=== PATIENT | male | born 1975 | race Caucasian/White ===

== ENCOUNTER 2016-11-14 18:58 | Emergency (ER) | payer MEDICAID ==
[2016-11-14 19:22] VITALS: BP 134/83
--- NOTE | 2016-11-14 19:45 | EDM.PDOC ---
ED HPI GENERAL MEDICAL PROBLEM - General Chief Complaint: Flank Pain Stated Complaint: stones Time Seen by Provider: 11/14/16 19:25 Source of Information: Reports: Patient, Family History Limitations: Reports: No Limitations - History of Present Illness INITIAL COMMENTS - FREE TEXT/NARRATIVE: 40-year-old male with chronic pain issues has developed right intermittent flank pain for the past 4 days. He has an increase in pain at the beginning of urination, it seems to improve shelter through the process of urinating. No fevers or chills, no recent trauma. He has not had this pain in the past. No GI changes. He's had somewhat decreased appetite. No nausea or vomiting. Onset: Other (4 days ago) Location: Reports: Back (Right flank) Quality: Reports: Ache Severity: Moderate Improves with: Reports: Other (Seems to improve at the end of urination. Also his regular pain medications help.) right flank Pain Score (Numeric/FACES): 6 - Related Data Allergies Allergy/AdvReac Type Severity Reaction Status Date / Time No Known Allergies Allergy Verified 11/14/16 19:14 Home Meds: Home Meds Cyclobenzaprine [Flexeril] 10 mg PO TID 11/14/16 [History] Gabapentin [Neurontin] 1,200 mg PO TID 11/14/16 [History] Gemfibrozil 600 mg PO BID 11/14/16 [History] Lisinopril/Hydrochlorothiazide [Lisinopril-Hctz 10-12.5 mg Tab] 1 tab PO DAILY 11/14/16 [History] Naproxen 1 tab PO TID 11/14/16 [History] oxyCODONE HCl [Oxycodone HCl] 20 mg PO QID 11/14/16 [History] Past Medical History Cardiovascular History: Reports: High Cholesterol, Hypertension Gastrointestinal History: Reports: GERD Musculoskeletal History: Reports: Back Pain, Chronic, Fracture, Fibromyalgia, Other (See Below) Other Musculoskeletal History: degenerative disc disease Psychiatric History: Reports: ADHD Dermatologic History: Reports: Eczema Social & Family History - Tobacco Use Smoking Status *Q: Current Every Day Smoker Years of Tobacco use: 20 Packs/Tins Daily: 1 - Caffeine Use Caffeine Use: Reports: Coffee, Energy Drinks, Soda - Recreational Drug Use Recreational Drug Use: No ED ROS GENERAL - Review of Systems Review Of Systems: See Below Constitutional: Denies: Fever, Chills HEENT: Reports: No Symptoms Respiratory: Denies: Shortness of Breath Cardiovascular: Denies: Chest Pain Endocrine: Denies: Fatigue GI/Abdominal: Reports: Decreased Appetite. Denies: Abdominal Pain, Nausea, Vomiting : Reports: Other (See history of present illness) Musculoskeletal: Reports: Back Pain (Patient has chronic back pain and "fibromyalgia") Skin: Reports: No Symptoms Neurological: Reports: No Symptoms ED EXAM, GENERAL - Physical Exam Exam: See Below Exam Limited By: No Limitations General Appearance: Alert, No Apparent Distress Eye Exam: Bilateral Eye: EOMI Respiratory/Chest: No Respiratory Distress, Lungs Clear Cardiovascular: Regular Rate, Rhythm, Tachycardia GI/Abdominal: Soft, Tender (No significant tenderness to palpation) Back Exam: CVA Tenderness (R) (He does react with tenderness to percussion of the right flank.) Neurological: Alert, Oriented Psychiatric: Normal Affect, Normal Mood Skin Exam: Warm, Dry Course - Vital Signs Last Recorded V/S: Last Vital Signs Temp 98.4 F 11/14/16 19:19 Pulse 121 H 11/14/16 19:19 Resp 18 11/14/16 19:19 BP 134/83 11/14/16 19:19 Pulse Ox 95 11/14/16 19:19 - Orders/Labs/Meds Orders: Active Orders 24 hr Category Date Time Status Abdomen Pelvis wo Cont [CT] Stat Exams 11/14/16 19:37 Taken Labs: Laboratory Tests 11/14/16 Range/Units 19:26 Urine Color Yellow Urine Appearance Clear Urine pH 6.0 (4.5-8.0) Ur Specific [place] 1.010 (1.008-1.030) Urine Protein Negative (NEGATIVE) mg/dL Urine Glucose (UA) Normal (NEGATIVE) mg/dL Urine Ketones Negative (NEGATIVE) mg/dL Urine Occult Blood Negative (NEGATIVE) Urine Nitrite Negative (NEGAITVE) Urine Bilirubin Negative (NEGATIVE) Urine Urobilinogen Normal (NORMAL) mg/dL Ur Leukocyte Esterase Negative (NEGATIVE) Urine RBC 0-5 (0-5) Urine WBC Not seen (0-5) Ur Epithelial Cells Rare Amorphous Sediment Not seen Urine Bacteria Rare Urine Mucus Not seen - Re-Assessments/Exams Free Text/Narrative Re-Assessment/Exam: 11/14/16 19:46 A UA was obtained which was normal. A CT of his abdomen and pelvis without contrast was then obtained. 11/14/16 20:09 CT showed no obstructive uropathy or other reason for acute pain. Patient was encouraged to continue his regular medications. He can recheck next week with a primary provider if symptoms persist. Departure - Departure Time of Disposition: 20:21 Disposition: Home, Self-Care 01 Condition: Good Clinical Impression: Muscle pain, fibromyalgia - Discharge Information Instructions: Flank Pain, [id number] Referrals: PCP,None [Primary Care Provider] - Forms: ED Department Discharge Care Plan Goals: Continue with your current medications and increase activity as tolerated. Consider rechecking with a primary care provider at the clinic in 3-4 days if not improving satisfactorily. Return anytime sooner if worsening or concerns. - My Orders Last 24 Hours: My Active Orders 11/14/16 19:37 Abdomen Pelvis wo Cont [CT] Stat - Assessment/Plan Last 24 Hours: My Active Orders 11/14/16 19:37 Abdomen Pelvis wo Cont [CT] Stat
== END 2016-11-14 20:21 | disposition home or self-care (01) ==
LOC: JP.ED 18:58
DX: M79.7 Fibromyalgia (principal); E78.00 Pure hypercholesterolemia, unspecified; K21.9 Gastro-esophageal reflux disease without esophagitis; I10 Essential (primary) hypertension; F17.210 Nicotine dependence, cigarettes, uncomplicated
CPT/HCPCS: 74176; 81001; 99283; 99284-25

== ENCOUNTER 2017-09-03 16:38 | Emergency (ER) | payer BC, MEDICAID ==
[2017-09-03 17:06] VITALS: BP 135/94
[2017-09-03] MEDS ORDERED: Cyclobenzaprine 10 MG Tab PO ONE (17:42)
[2017-09-03] MEDS ORDERED: Ketorolac 60 MG/2 ML SDV IM ONE (17:42)
--- NOTE | 2017-09-03 17:44 | EDM.PDOC ---
ED HPI GENERAL MEDICAL PROBLEM - General Chief Complaint: Back Pain or Injury Stated Complaint: PAIN IN NECK AND DOWN BACK NOT AN ACCIDENT Time Seen by Provider: 09/03/17 17:39 Source of Information: Reports: Patient, Family, RN Notes Reviewed History Limitations: Reports: No Limitations - History of Present Illness INITIAL COMMENTS - FREE TEXT/NARRATIVE: 41-year-old gentleman presents emergency department day complaint of shoulder and back pain on the right side he states is been ongoing for the last couple days he does have a past medical history of fibromyalgia is not taking any particular medication for this pain he states sitting for prolonged period does exacerbate the pain it feels better with movement. He denies any nausea vomiting shortness of breath chest pain no loss of bowel or bladder Neck Pain Score (Numeric/FACES): 8 - Related Data Allergies Allergy/AdvReac Type Severity Reaction Status Date / Time No Known Allergies Allergy Verified 11/14/16 19:14 Home Meds: Home Meds Gabapentin [Neurontin] 1,200 mg PO TID 11/14/16 [History] Gemfibrozil 600 mg PO BID 11/14/16 [History] Lisinopril/Hydrochlorothiazide [Lisinopril-Hctz 10-12.5 mg Tab] 1 tab PO DAILY 11/14/16 [History] Naproxen 1 tab PO TID 11/14/16 [History] Past Medical History Cardiovascular History: Reports: High Cholesterol, Hypertension Gastrointestinal History: Reports: GERD Musculoskeletal History: Reports: Back Pain, Chronic, Fracture, Fibromyalgia, Other (See Below) Other Musculoskeletal History: degenerative disc disease Psychiatric History: Reports: ADHD Dermatologic History: Reports: Eczema Social & Family History - Tobacco Use Smoking Status *Q: Current Every Day Smoker Years of Tobacco use: 25 Packs/Tins Daily: 1 - Caffeine Use Caffeine Use: Reports: Coffee, Soda - Recreational Drug Use Recreational Drug Use: No ED ROS GENERAL - Review of Systems Review Of Systems: See Below Constitutional: Reports: No Symptoms HEENT: Reports: No Symptoms Respiratory: Reports: No Symptoms Cardiovascular: Reports: No Symptoms GI/Abdominal: Reports: No Symptoms : Reports: No Symptoms Musculoskeletal: Reports: Shoulder Pain, Back Pain Skin: Reports: No Symptoms Neurological: Reports: No Symptoms ED EXAM, UPPER BACK/NECK PAIN - Physical Exam Exam: See Below Text/Narrative:: Examination of the upper extremity he has full range of motion I don't appreciate any erythema or edema located around the shoulder he is point tender to the superior aspect of the rhomboids radial pulse is +2 on the right side, neck I don't appreciate any point tenderness full range of motion of the neck Exam Limited By: No Limitations General Appearance: Alert, WD/WN, No Apparent Distress Cardiovascular/Respiratory: Regular Rate, Rhythm, No M/R/G, Normal Breath Sounds , No Respiratory Distress Course - Vital Signs Last Recorded V/S: Last Vital Signs Temp 96.1 F 09/03/17 17:07 Pulse 86 09/03/17 17:07 Resp 16 09/03/17 17:07 BP 135/94 H 09/03/17 17:07 Pulse Ox 95 09/03/17 17:07 - Orders/Labs/Meds Meds: Medications Discontinued Medications Generic Name Dose Route Start Last Admin Trade Name Priscilla PRN Reason Stop Dose Admin Cyclobenzaprine HCl 10 mg 09/03/17 17:42 09/03/17 17:50 Flexeril PO 09/03/17 17:43 10 mg ONETIME ONE Administration Ketorolac Tromethamine 60 mg 09/03/17 17:42 09/03/17 17:49 Toradol IM 09/03/17 17:43 60 mg ONETIME ONE Administration Departure - Departure Time of Disposition: 07:10 Disposition: Home, Self-Care 01 Condition: Good Clinical Impression: Muscle pain, fibromyalgia - Discharge Information Instructions: Back Pain, Adult, [id number] Referrals: PCP,None [Primary Care Provider] - Forms: ED Department Discharge - Assessment/Plan Plan: Assessment Acuity = acute Site and laterality = rhomboid pain Etiology = secondary muscle strain Manifestations = none Location of injury = Home Lab values = none Plan Had good relief with combination Toradol Flexeril follow-up primary care 3-5 days This note was dictated using [employer] voice recognition software please call with any questions on syntax or grammar.
== END 2017-09-03 18:17 | disposition home or self-care (01) ==
LOC: JP.ED 16:38
DX: M79.7 Fibromyalgia (principal); I10 Essential (primary) hypertension; F17.210 Nicotine dependence, cigarettes, uncomplicated
CPT/HCPCS: 96372; 99283; A9270; J1885

== ENCOUNTER 2022-05-09 16:21 | Emergency (ER) | payer BC, OTHER ==
[2022-05-09 16:29] VITALS: BP 148/95; PULSE 126
== END 2022-05-09 17:03 | disposition home or self-care (01) ==
LOC: JP.ED 16:21
DX: J40 Bronchitis, not specified as acute or chronic (principal); I10 Essential (primary) hypertension; E11.9 Type 2 diabetes mellitus without complications; Z86.16 Personal history of COVID-19; Z79.899 Other long term (current) drug therapy
CPT/HCPCS: 99282; 99284

== ENCOUNTER 2023-02-25 06:44 | Day surgery (SDC) | payer BC ==
[2023-02-25] MEDS ORDERED: Propofol 200 MG/20 ML SDV ONE ×2 (07:22→09:26)
[2023-02-25] MEDS ORDERED: Midazolam 1 MG/ML 2 ML SDV ONE (07:22)
[2023-02-25] MEDS ORDERED: fentaNYL 50 MCG/ML SDV ONE (07:22)
[2023-02-25] MEDS ORDERED: Sodium Chloride 0.9% 1,000 ML IV SCH (07:30)
[2023-02-25 10:18] VITALS: BP 126/82; PULSE 82
== END 2023-02-25 10:20 | disposition home or self-care (01) ==
LOC: JP.SDS 06:44
PROVIDERS: ATTEND Surgery
DX: Z12.11 Encounter for screening for malignant neoplasm of colon (principal); K63.5 Polyp of colon; I10 Essential (primary) hypertension; F17.200 Nicotine dependence, unspecified, uncomplicated
CPT/HCPCS: 88305; J2250; J2704; J3010; J7030

== ENCOUNTER 2023-02-26 15:30 | Emergency (ER) | payer BC ==
[2023-02-26 15:42] VITALS: BP 138/95; PULSE 110
[2023-02-26] MEDS ORDERED: Diphtheria,Pertussis(Acell),Tetanus Vaccine 0.5 ML Syringe IM ONE (16:03)
[2023-02-26] MEDS ORDERED: Lidocaine 1% 5 ML VIAL INJECT ONE (16:03)
[2023-02-26] MEDS ORDERED: Bacitracin Oint 1 GM U/D Packet TOP ONE (16:04)
== END 2023-02-26 16:55 | disposition home or self-care (01) ==
LOC: JP.ED 15:30
DX: S61.012A Laceration without foreign body of left thumb without damage to nail, initial encounter (principal); E78.00 Pure hypercholesterolemia, unspecified; I10 Essential (primary) hypertension; E11.9 Type 2 diabetes mellitus without complications; Z86.16 Personal history of COVID-19
CPT/HCPCS: 12001; 90471; 90715; 99282; 99282-25

== ENCOUNTER 2024-01-28 16:43 | Emergency (ER) | payer BC ==
[2024-01-28] MEDS ORDERED: Sodium Chloride 0.9% 10 ML Syringe FLUSH PRN (17:30)
[2024-01-28] MEDS ORDERED: Nitroglycerin 0.4 MG Tab.SL SL PRN (17:30)
[2024-01-28] MEDS ORDERED: Morphine 4 MG/ML Syringe IVPUSH PRN (17:30)
[2024-01-28] MEDS ORDERED: Aspirin 81 MG Tab.Chew PO ONE (17:30)
[2024-01-28 17:39] LABS: BASOPHILS ABSOLUTE AUTO 0.05 K/uL (0.00-0.10); BASOPHILS PERCENT AUTO 0.5 % (0.1-1.3); EOSINOPHILS ABSOLUTE AUTO 0.11 K/uL (0.00-0.40); EOSINOPHILS PERCENT AUTO 1.1 % (0.0-5.4); HEMATOCRIT 42.4 % (38.4-49.7); IMMATURE GRAN ABSOLUTE AUTO 0.03 K/uL (0.00-0.23); IMMATURE GRAN PERCENT AUTO 0.3 % (0.0-0.7); LYMPHOCYTES ABSOLUTE AUTO 1.76 K/uL (0.8-3.3); LYMPHOCYTES PERCENT AUTO 17.6 % (11.4-47.7); MEAN CORPUSCULAR HEMOGLOBIN 31.6 pg (31.6-35.5); MEAN CORPUSCULAR HGB CONC 35.4 g/dL (31.6-35.5); MEAN CORPUSCULAR VOLUME 89.3 fL (81.4-99.0); MONOCYTES ABSOLUTE AUTO 0.79 K/uL (0.20-0.90); MONOCYTES PERCENT AUTO 7.9 % (3.3-12.6); NEUTROPHILS ABSOLUTE AUTO 7.26 K/uL (1.0-7.6); NEUTROPHILS PERCENT AUTO 72.6 % (40.0-78.1); PLATELET COUNT,PLT 246 K/uL (130-375); RED BLOOD CELL COUNT 4.75 M/uL (4.14-5.76)
[2024-01-28 17:54] LABS: A/G RATIO 1.4 (1.2-2.2); ALANINE AMINOTRANSFERASE,ALT 23 U/L (12-78); ALBUMIN 4.1 g/dL (3.4-5.0); ALKALINE PHOSPHATASE 105 U/L (46-116); ANION GAP 8.6 mmol/L (5.0-14.0); ASPARTATE AMNIOTRANSFERASE,AST 14 U/L (15-37); BILIRUBIN TOTAL 0.3 mg/dL (0.2-1.0); BLOOD UREA NITROGEN,BUN 27 mg/dL (7-18); CALCIUM 8.9 mg/dL (8.5-10.1); CARBON DIOXIDE,CO2 28 mmol/L (21-32); CHLORIDE,CL 104 mmol/L (100-108); CREATININE 1.5 mg/dL (0.8-1.3); EST CRCL DRUG DOSING (CG) 71.54 mL/min; ESTIMATED GFR 58 mL/min (>60); GLUCOSE RANDOM 270 mg/dL (74-106); POTASSIUM,K 3.8 mmol/L (3.6-5.2); SODIUM,NA 141 mmol/L (140-148)
[2024-01-28 17:57] LABS: TROPONIN I HIGH SENSITIVITY < 4.0 pg/mL (<=60.3)
[2024-01-28 18:36] VITALS: BP 156/103; PULSE 114
== END 2024-01-28 18:53 | disposition home or self-care (01) ==
LOC: JP.ED 16:43
DX: R07.89 Other chest pain (principal); I10 Essential (primary) hypertension; E78.00 Pure hypercholesterolemia, unspecified; J45.909 Unspecified asthma, uncomplicated; E11.9 Type 2 diabetes mellitus without complications; F17.210 Nicotine dependence, cigarettes, uncomplicated; Z79.899 Other long term (current) drug therapy
CPT/HCPCS: 36415; 71045; 71045-26; 80053; 83605; 84484; 85025; 93005; 99285

== ENCOUNTER 2024-02-24 17:56 | Emergency (ER) | payer BC ==
[2024-02-24] MEDS: Lactated Ringers 1,000 ML IV SCH (18:53)
[2024-02-24 18:54] LABS: BASOPHILS ABSOLUTE AUTO 0.04 K/uL (0.00-0.10); BASOPHILS PERCENT AUTO 0.3 % (0.1-1.3); EOSINOPHILS ABSOLUTE AUTO 0.04 K/uL (0.00-0.40); EOSINOPHILS PERCENT AUTO 0.3 % (0.0-5.4); HEMOGLOBIN 14.1 g/dL (12.9-16.9); IMMATURE GRAN ABSOLUTE AUTO 0.06 K/uL (0.00-0.23); IMMATURE GRAN PERCENT AUTO 0.5 % (0.0-0.7); LYMPHOCYTES ABSOLUTE AUTO 0.82 K/uL (0.8-3.3); LYMPHOCYTES PERCENT AUTO 6.8 % (11.4-47.7); MEAN CORPUSCULAR HEMOGLOBIN 31.6 pg (31.6-35.5); MEAN CORPUSCULAR HGB CONC 35.3 g/dL (31.6-35.5); MEAN CORPUSCULAR VOLUME 89.7 fL (81.4-99.0); MONOCYTES ABSOLUTE AUTO 1.55 K/uL (0.20-0.90); MONOCYTES PERCENT AUTO 12.8 % (3.3-12.6); NEUTROPHILS ABSOLUTE AUTO 9.62 K/uL (1.0-7.6); NEUTROPHILS PERCENT AUTO 79.3 % (40.0-78.1); PLATELET COUNT,PLT 219 K/uL (130-375); RED BLOOD CELL COUNT 4.46 M/uL (4.14-5.76); WHITE BLOOD CELL COUNT,WBC 12.1 K/uL (3.2-11.0)
[2024-02-24] MEDS: cefTRIAXone 2 GM in Sodium Chloride 0.9% 50 ML IV ONE (18:54)
[2024-02-24 19:07] VITALS: BP 109/75; PULSE 114
[2024-02-24 19:16] LABS: A/G RATIO 0.9 (1.2-2.2); ALANINE AMINOTRANSFERASE,ALT 18 U/L (12-78); ALBUMIN 3.3 g/dL (3.4-5.0); ALKALINE PHOSPHATASE 95 U/L (46-116); ASPARTATE AMNIOTRANSFERASE,AST 12 U/L (15-37); BILIRUBIN TOTAL 0.3 mg/dL (0.2-1.0); BLOOD UREA NITROGEN,BUN 17 mg/dL (7-18); C-REACTIVE PROTEIN 15.93 mg/dL (<0.50); CALCIUM 8.1 mg/dL (8.5-10.1); CARBON DIOXIDE,CO2 28 mmol/L (21-32); CHLORIDE,CL 98 mmol/L (100-108); CREATININE 1.1 mg/dL (0.8-1.3); EST CRCL DRUG DOSING (CG) 97.56 mL/min; ESTIMATED GFR 84 mL/min (>60); GLUCOSE RANDOM 177 mg/dL (74-106); POTASSIUM,K 3.5 mmol/L (3.6-5.2); PROTEIN TOTAL,TP 6.9 g/dL (6.4-8.2); SODIUM,NA 136 mmol/L (140-148)
[2024-02-24 19:18] LABS: ANION GAP 13.5 mmol/L (5.0-14.0)
[2024-02-24 19:21] LABS: LACTIC ACID 1.2 mmol/L (0.4-2.0)
== END 2024-02-24 20:19 | disposition home or self-care (01) ==
LOC: JP.ED 17:56
DX: E11.621 Type 2 diabetes mellitus with foot ulcer (principal); L97.415 Non-pressure chronic ulcer of right heel and midfoot with muscle involvement without evidence of necrosis; L03.115 Cellulitis of right lower limb; I10 Essential (primary) hypertension; E78.00 Pure hypercholesterolemia, unspecified; J45.909 Unspecified asthma, uncomplicated; F17.210 Nicotine dependence, cigarettes, uncomplicated
CPT/HCPCS: 36415; 80053; 83605; 84145; 85025; 86140; 87040; 96365; 99283; J0696; J3490; J7120

== ENCOUNTER 2024-04-23 10:32 | Emergency (ER) | payer BC ==
[2024-04-23 11:17] LABS: BASOPHILS ABSOLUTE AUTO 0.04 K/uL (0.00-0.10); BASOPHILS PERCENT AUTO 0.3 % (0.1-1.3); EOSINOPHILS ABSOLUTE AUTO 0.05 K/uL (0.00-0.40); EOSINOPHILS PERCENT AUTO 0.4 % (0.0-5.4); HEMATOCRIT 44.8 % (38.4-49.7); HEMOGLOBIN 15.4 g/dL (12.9-16.9); IMMATURE GRAN ABSOLUTE AUTO 0.04 K/uL (0.00-0.23); IMMATURE GRAN PERCENT AUTO 0.3 % (0.0-0.7); LYMPHOCYTES PERCENT AUTO 8.6 % (11.4-47.7); MEAN CORPUSCULAR HEMOGLOBIN 31.4 pg (31.6-35.5); MEAN CORPUSCULAR HGB CONC 34.4 g/dL (31.6-35.5); MEAN CORPUSCULAR VOLUME 91.2 fL (81.4-99.0); MONOCYTES ABSOLUTE AUTO 0.86 K/uL (0.20-0.90); MONOCYTES PERCENT AUTO 6.2 % (3.3-12.6); NEUTROPHILS ABSOLUTE AUTO 11.71 K/uL (1.0-7.6); NEUTROPHILS PERCENT AUTO 84.2 % (40.0-78.1); PLATELET COUNT,PLT 270 K/uL (130-375); RED BLOOD CELL COUNT 4.91 M/uL (4.14-5.76); WHITE BLOOD CELL COUNT,WBC 13.9 K/uL (3.2-11.0)
[2024-04-23 11:20] LABS: BICARBONATE,VENOUS 26.4 mmol/L; O2 SATURATION VENOUS 40.9; OXYHEMOGLOBIN 38.4 %; PCO2 VENOUS 42.2 mm/Hg; PH,VENOUS 7.412 (7.350-7.450); PO2 VENOUS 22.3 mm/Hg
[2024-04-23 11:39] LABS: A/G RATIO 1.5 (1.2-2.2); ALANINE AMINOTRANSFERASE,ALT 37 U/L (12-78); ALBUMIN 4.5 g/dL (3.4-5.0); ALKALINE PHOSPHATASE 108 U/L (46-116); ANION GAP 7.8 mmol/L (5.0-14.0); ASPARTATE AMNIOTRANSFERASE,AST 24 U/L (15-37); BILIRUBIN TOTAL 0.6 mg/dL (0.2-1.0); BLOOD UREA NITROGEN,BUN 19 mg/dL (7-18); CALCIUM 9.2 mg/dL (8.5-10.1); CARBON DIOXIDE,CO2 28 mmol/L (21-32); CHLORIDE,CL 104 mmol/L (100-108); EST CRCL DRUG DOSING (CG) 107.32 mL/min; ESTIMATED GFR 94 mL/min (>60); GLUCOSE RANDOM 150 mg/dL (74-106); POTASSIUM,K 4.4 mmol/L (3.6-5.2); PROTEIN TOTAL,TP 7.5 g/dL (6.4-8.2); SODIUM,NA 140 mmol/L (140-148)
[2024-04-23 11:40] LABS: TROPONIN I HIGH SENSITIVITY < 4.0 pg/mL (<=60.3)
[2024-04-23 13:20] LABS: BICARBONATE,VENOUS 26.4 mmol/L; O2 SATURATION VENOUS 53.4; OXYHEMOGLOBIN 51.3 %; PCO2 VENOUS 42.5 mm/Hg
[2024-04-23 14:04] VITALS: BP 140/99; PULSE 107
== END 2024-04-23 13:59 | disposition home or self-care (01) ==
LOC: JP.ED 10:32
DX: T58.91XA Toxic effect of carbon monoxide from unspecified source, accidental (unintentional), initial encounter (principal); I10 Essential (primary) hypertension; E78.00 Pure hypercholesterolemia, unspecified; E11.9 Type 2 diabetes mellitus without complications; F17.210 Nicotine dependence, cigarettes, uncomplicated; Z79.899 Other long term (current) drug therapy
CPT/HCPCS: 36415; 80053; 82803; 84484; 85025; 93005; 99285